=== PATIENT | male | born 1950 | race Caucasian/White ===

== ENCOUNTER 2017-02-22 16:57 | Inpatient (IN) | payer MEDICARE ==
[~2017-02-22] VITALS: Ht 180.3 cm; Wt 124.8 kg
[~2017-02-22 16:57] MED LIST: HYDR12.56 PO; LASI20TA PO; TRAM50 PO
[2017-02-27] MEDS ORDERED: HYDR12.57 PO (06:25)
[2017-02-27] MEDS ORDERED: ceFAZolin 2 GM PREMIX 50 ML ONE (06:30)
[2017-02-27 06:40] VITALS: BP 166/83; PULSE 53; RESP 20; TEMP 97.8; O2SAT 98
[2017-02-27] MEDS ORDERED: TRAM50TA PO (06:47)
[2017-02-27] MEDS ORDERED: GENTAMICIN SULFATE 80 MG/2 ML VIAL ONE (06:57)
[2017-02-27] MEDS ORDERED: FAMOTIDINE 20 MG/2 ML VIAL ONE (07:43)
[2017-02-27] MEDS ORDERED: MIDAZOLAM HCL 2 MG/2 ML VIAL ONE (07:44)
[2017-02-27] MEDS ORDERED: DEXAMETHASONE SOD PHOS 4 MG/ML VIAL ONE (07:44)
[2017-02-27] MEDS ORDERED: POVIDONE IODINE 7.5% SCRUB 118 ML BOTTLE TOPICAL SCH (07:45)
[2017-02-27] MEDS ORDERED: ceFAZolin 2 GM PREMIX 50 ML IV SCH (07:45)
[2017-02-27] MEDS ORDERED: LACTATED RINGER'S 1000 ML INJ 3,000 ML IV ONE (10:01)
[2017-02-27] MEDS ORDERED: ePHEDrine/NS 25 MG/5 ML SYR IV ONE (10:01)
[2017-02-27] MEDS ORDERED: PROPOFOL 200 MG/20 ML AMP IV ONE (10:01)
[2017-02-27] MEDS ORDERED: PHENYLEPH/NS 1000 MCG/10 ML SYR IV ONE (10:01)
[2017-02-27] MEDS ORDERED: ONDANSETRON HCL 4 MG/2 ML VIAL IV PUSH ONE (10:01)
[2017-02-27] MEDS ORDERED: SODIUM CHLOR 0.9% 250 ML INJ 250 ML IV ONE (10:02)
[2017-02-27 10:10] LABS: HEMATOCRIT 33.8 % (39.0-51.0); REVIEW FLAG FINAL
[2017-02-27] MEDS ORDERED: POVIDONE IODINE 10% SOLN 118 ML BOTTLE TOPICAL PRN (11:15)
[2017-02-27] MEDS ORDERED: ONDANSETRON HCL 4 MG/2 ML VIAL IVP PRN (11:15)
[2017-02-27] MEDS ORDERED: SODIUM CHLORIDE 0.9% FLUSH 10 ML FLUSH IV FLUSH PRN (11:15)
[2017-02-27] MEDS ORDERED: NALOXONE HCL 0.4 MG/ML AMP IV PRN (11:15)
[2017-02-27] MEDS ORDERED: MORPHINE SULFATE 8 MG/ML INJ IM PRN (11:15)
[2017-02-27] MEDS ORDERED: Post-op Orders (for Pharmacy) MISC XX ONE (11:15)
[2017-02-27] MEDS ORDERED: ACETAMINOPHEN 325 MG TAB PO PRN (11:15)
[2017-02-27] MEDS ORDERED: ACETAMINOPHEN/HYDROcodone 325 MG/7.5 MG TAB PO PRN (11:15)
[2017-02-27] MEDS ORDERED: fentaNYL CITRATE 250 MCG/5 ML AMP ONE (11:17)
[2017-02-27] MEDS ORDERED: MORPHINE SULFATE 4 MG/ML INJ ONE (11:17)
[2017-02-27] MEDS ORDERED: *morphine SULFATE 8 MG/ML PERIprocedure ONLY ONE (11:46)
[2017-02-27] MEDS: MORPHINE SULFATE 30 MG/30 ML PCA IV SCH (11:51)
[2017-02-27 11:59] LABS: HEMATOCRIT 35.2 % (39.0-51.0); REVIEW FLAG FINAL
--- NOTE | 2017-02-27 12:07 | RADRPT ---
EXAM DATE/TIME: 02/27/2017 11:30 [place] COMPARISON: No previous studies available for comparison. INDICATIONS : Postoperative right hip. MEDICAL HISTORY : None. SURGICAL HISTORY : None. ENCOUNTER: Initial ACUITY: 1 day PAIN SCORE: 10/10 LOCATION: Right hip FINDINGS: AP and crosstable lateral views of the right hip were obtained and demonstrate the patient status pos t arthroplasty. The femoral and acetabular components are intact and in normal alignment. There is la teral soft tissue swelling with overlying surgical skin taylor. CONCLUSION: Expected postoperative changes status post right hip arthroplasty. iMnh Mccarty MD on February 27, 2017 at 12:04 Board Certified Radiologist. This report was verified electronically.
[2017-02-27] MEDS ORDERED: LACTATED RINGER'S 1000 ML INJ 1,000 ML IV SCH (12:45)
[2017-02-27] MEDS: ceFAZolin 2 GM PREMIX 50 ML IV SCH ×2 (13:00→18:11)
[2017-02-27] MEDS: PCA - TOTAL MG MORPHINE DELIVERED PER SHIFT SCH ×2 (13:56→21:56)
[2017-02-27 18:25] VITALS: BP 146/77; PULSE 64; RESP 20; TEMP 98.1; O2SAT 96
[2017-02-27 19:30] VITALS: BP 124/75; PULSE 66; RESP 18; TEMP 98.1; O2SAT 96
[2017-02-27] MEDS: SODIUM CHLORIDE 0.9% FLUSH 10 ML FLUSH IV FLUSH SCH (21:00)
[2017-02-27] MEDS: ENOXAPARIN SODIUM 40 MG/0.4 ML SYRINGE SQ SCH (23:21)
[2017-02-28 00:30] VITALS: BP 136/67; PULSE 68; RESP 16; TEMP 96.6; O2SAT 95
[2017-02-28] MEDS: ceFAZolin 2 GM PREMIX 50 ML IV SCH (02:36)
[2017-02-28 04:40] VITALS: BP 158/79; PULSE 74; RESP 16; TEMP 97.8; O2SAT 16
[2017-02-28] MEDS: PCA - TOTAL MG MORPHINE DELIVERED PER SHIFT SCH ×3 (06:00→22:00)
[2017-02-28 06:51] LABS: HEMATOCRIT 30.3 % (39.0-51.0); MEAN CORPUSCULAR HEMOGLOBIN 30.4 PG (27.0-34.0); MEAN CORPUSCULAR HGB CONC 34.9 % (32.0-36.0); PLATELET COUNT 171 TH/MM3 (150-450); RED BLOOD COUNT 3.48 MIL/MM3 (4.50-5.90); RED CELL DISTRIBUTION WIDTH 13.6 % (11.6-17.2); REVIEW FLAG FINAL
[2017-02-28 07:18] LABS: BICARBONATE 33.4 MEQ/L (21.0-32.0); POTASSIUM 3.4 MEQ/L (3.5-5.1)
[2017-02-28 08:00] VITALS: BP 149/78; PULSE 79; RESP 16; TEMP 98.6; O2SAT 92
[2017-02-28] MEDS: HYDROCHLOROTHIAZIDE 12.5 MG CAP PO SCH (08:41)
[2017-02-28] MEDS: SODIUM CHLORIDE 0.9% FLUSH 10 ML FLUSH IV FLUSH SCH ×2 (08:42→20:20)
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
[2017-02-28] MEDS: MORPHINE SULFATE 30 MG/30 ML PCA IV SCH (10:17)
--- NOTE | 2017-02-28 10:53 | MP ---
cc: MONICA RIVERA MD DATE OF SURGERY: 02/27/2017 ATTENDING PHYSICIAN/SURGEON Elizabeth PREOPERATIVE DIAGNOSIS Right hip osteoarthritis. POSTOPERATIVE DIAGNOSIS Right hip osteoarthritis. PROCEDURE Right total hip arthroplasty. PROCEDURE IN DETAIL Informed consent was obtained. The patient was taken to the operating room and placed in the supine position on the operating table. He was administered general anesthesia by the anesthesiologist. At that time the patient was rolled into a lateral decubitus position and fixed with the hip positioner table. A sterile U-drape was applied to the patient's groin. At that time the hip was prepped with Betadine soap followed by Betadine paint from the iliac crest to the tip of the toes. Once this was completed the draping commenced with sterile down sheet, sterile towels about the hip and split sheet. Stockinette was applied to the foot and calf and this was wrapped with Coban. A laparotomy sheet was applied. An [place] drape was applied. The patient had been given two grams of Ancef prior to initiation of the operative procedure. A timeout was held and confirmed. At that time the hip was flexed. A marking pen was utilized to map out the proposed skin incision. With the hip flexed an incision was made through skin and subcutaneous tissue down through subcutaneous fat to the fascia shan. The fascia shan was opened along with the skin incision. A [place] retractor was placed. The sciatic nerve was identified and protected throughout the remainder of the operative procedure. At that time the short external rotators were tagged and taken down from the greater trochanter. The hip was dislocated. A femoral neck osteotomy was performed utilizing the DePuy guide. The hip was measured at a size 48. The acetabulum was then reamed beginning at size 47 up to size 59. A 60 trial component was placed and found to be satisfactory. At that time the final component was impacted into the hip. A single screw was used for screw fixation. This was a 6.5 x 20 mm screw. This was a Sector shell. Next, the DePuy acetabular liner was placed. This was a 32 mm inner diameter and 60 mm outer diameter liner and was snapped into position. At that time attention was turned to the femoral side. A cookie-cutter was utilized to open up the posterior canal. A T-handle reamer was utilized to identify the canal and reaming commenced at 8 mm up to 13 mm. Several broaches were then utilized to get to a 13.5 standard broach. Next, the 13.5 large stature broach was impacted into position. A trial reduction was performed utilizing a +1 32 mm trial head and this was found to be satisfactory. The trial components were removed. The 13.5 AML stem from the allGreenup, porous coated, was then impacted into the femur. The 32 mm diameter +1 neck length femoral head was impacted onto the femur and final reduction was performed and found to be satisfactory. At that time the hip was thoroughly irrigated and suctioned. A Hemovac drain was placed although this was discontinued during the dressing phase. The wound was closed with #1 Vicryl, 2-0 Vicryl, 2-0 plain and skin taylor. Xeroform, 4x4s, ABD and tape were applied to the patient's hip. He was placed in an abduction pillow then turned on his side on the recovery room stretcher. He tolerated the procedure well and was then taken to the recovery room in stable condition. At the completion of the procedure the sponge counts, instrument counts and needle counts were correct. Estimated blood loss was 750 cc. MD SOFIYA Duffy/JOSE /11:17 AM /10:32 AM
[2017-02-28] MEDS ORDERED: POTASSIUM CHLORIDE 25 MEQ EFFERVESCENT TAB PO ONE (11:45)
--- NOTE | 2017-02-28 11:48 | HHI.PR ---
Subjective Remarks Up in chair alert oriented Pain management, effective, patient states increased soreness, more than he expected Bowel regimen Afebrile Activity per PT Objective Objective Results - Vital Signs Date Time Temp Pulse Resp B/P Pulse Ox O2 Delivery O2 Flow Rate FiO2 02/28/17 08:00 98.6 79 16 149/78 92 02/28/17 06:00 18 02/28/17 04:40 97.8 74 16 158/79 16 02/28/17 00:30 96.6 68 16 136/67 95 02/27/17 21:56 16 02/27/17 20:52 21 02/27/17 19:30 98.1 66 18 124/75 96 02/27/17 18:25 98.1 64 20 146/77 96 02/27/17 16:00 98.6 60 22 123/63 98 Nasal Cannula 2 02/27/17 14:00 97.0 64 22 128/60 99 Nasal Cannula 4 02/27/17 13:56 17 02/27/17 13:00 59 15 122/65 99 Nasal Cannula 4 02/27/17 12:30 61 15 145/69 97 Nasal Cannula 4 02/27/17 12:15 63 17 145/64 96 Nasal Cannula 4 02/27/17 12:00 57 17 133/63 99 Nasal Cannula 4 02/27/17 11:51 15 02/27/17 11:45 53 13 123/59 100 Nasal Cannula 4 I/O 02/27/17 02/27/17 02/27/17 02/28/17 02/28/17 02/28/17 07:00 15:00 23:00 07:00 15:00 23:00 Intake Total 3360 ml 980 ml 480 ml Output Total 1600 ml 1200 ml 450 ml Balance 1760 ml -220 ml 30 ml Intake Oral 980 ml 480 ml IV Total 110 ml Packed Cells 250 ml Other 3000 ml Output Urine Total 1200 ml 450 ml Estimated Blood Loss 1600 ml # Bowel Movements 0 0 Result Diagram: 02/28/1761802/28/17618 ROS General: Weakness (status post right hip repair today 1), Other (10 point ROS done positives noted otherwise systems negative or unremarkable) GI: BM (not yet) Skin: Other (right hip wound incision clean dry and intact, mild edema) Physical Exam Physical Exam PHYSICAL EXAMINATION GENERAL: This is a well-developed, well-nourished obese male who appears to be in no acute distress. He is alert and awake, HEAD: Normocephalic without any lesion or mass noted. Facial features appear symmetric. OROPHARYNGEAL: Oropharynx without erythema or edema. NECK: Supple. No nuchal rigidity or lymphadenopathy. Trachea midline without deviation. CARDIAC: Regular rhythm, regular rate, S1 and S2 are heard. LUNGS: Clear to auscultation bilaterally. No wheezes rales or rhonchi ABDOMEN: Round, Soft, nontender, no organomegaly or masses. Bowel sounds are heard in all four quadrants. No BM yet EXTREMITIES: 1+ edema. Special attention to right lower extremity, surgical hip pulses intact NEUROLOGICAL: Patient mood and affect appropriate. No focal deficit SKIN:Warm and moist Objective Remarks I'm glad to be sitting up today A/P Assessment and Plan 1. Right hip osteoarthritis status post right hip arthroplasty. Postop care and pain management per ortho. Currently patient is up in chair , mild edema noted to his lower right lower extremity States really sore this morning, using pain meds Bowel regimen, no BM yet, discussed not going more than 3 days. Medical management stool softeners and laxative Leukocytosis mild, probable secondary to right hip repair. Protocol with antibiotics in place. 2. Hypertension. Medical management stable on vital signs 3. Obesity. Educated and discussed weight loss and healthy lifestyles which will include ambulation. Discharge planning goals discussed 4. Disk disease / herniation. Sitting up in chair, no complaints of low back pain. Medical management 5. Anemia, mild. Labs reviewed this a.m. hemoglobin 10.6, monitor 6. Hypokalemia, mild Labs reviewed this morning potassium 3.4. One dose K 25 mEq given. Discharge planning patient is planning going to rehabilitation, he states possible today after 2. Supportive care Discussed With: Nurse, Family (patient), Other (Dr. Woodson, seen on his behalf) Kimberlee Stuart Feb 28, 2017 11:48
[2017-02-28 12:00] VITALS: BP 125/70; PULSE 81; RESP 20; TEMP 99.7; O2SAT 97
--- NOTE | 2017-02-28 14:21 | PD.ORT.PN ---
Subjective Post Op Day #: 1 Subjective Remarks More painful than he remembers with right hip. Currently in Joint Class. Objective Vitals Vital Signs Date Time Temp Pulse Resp B/P Pulse Ox O2 Delivery O2 Flow Rate FiO2 02/28/17 08:00 98.6 79 16 149/78 92 02/28/17 06:00 18 02/28/17 04:40 97.8 74 16 158/79 16 02/28/17 00:30 96.6 68 16 136/67 95 02/27/17 21:56 16 02/27/17 20:52 21 02/27/17 19:30 98.1 66 18 124/75 96 02/27/17 18:25 98.1 64 20 146/77 96 02/27/17 16:00 98.6 60 22 123/63 98 Nasal Cannula 2 I/O 02/27/17 02/27/17 02/27/17 02/28/17 02/28/17 02/28/17 07:00 15:00 23:00 07:00 15:00 23:00 Intake Total 3360 ml 980 ml 480 ml Output Total 1600 ml 1200 ml 450 ml Balance 1760 ml -220 ml 30 ml Intake Oral 980 ml 480 ml IV Total 110 ml Packed Cells 250 ml Other 3000 ml Output Urine Total 1200 ml 450 ml Estimated Blood Loss 1600 ml # Bowel Movements 0 0 Result Diagram: 02/28/17 0619 02/28/17 0619 Imaging Last Impressions Hip and Pelvis X-Ray 02/27/17 0000 Signed Impressions: Service Date/Time: Monday, February 27, 2017 11:30 - CONCLUSION: Expected postoperative changes status post right hip arthroplasty. Minh Mccarty MD Objective Remarks Dressing intact. Patient is wheel chair and reportedly transferred without difficulty. N-V distally is intact. Assessment & Plan Ortho Post Op Day #: 1 Problem List: (1) Osteoarthritis of right hip (2) Presence of artificial hip Assessment and Plan Patient stable POD #1. Going back to joint class. Dressing change tomorrow. Continue post op rehab. Wilber Johnson MD Feb 28, 2017 14:21
[2017-02-28 15:43] VITALS: BP 142/79; PULSE 78; RESP 18; TEMP 99.4; O2SAT 97
[2017-02-28 19:30] VITALS: BP 144/70; PULSE 86; RESP 17; TEMP 99.8; O2SAT 93
[2017-02-28] MEDS: MULTIVITAMINS/MINERALS THERAPEUTIC TAB PO SCH (20:20)
[2017-02-28] MEDS: ENOXAPARIN SODIUM 40 MG/0.4 ML SYRINGE SQ SCH (22:27)
[2017-03-01 00:45] VITALS: BP 151/69; PULSE 82; RESP 18; TEMP 99; O2SAT 92
[2017-03-01 04:40] VITALS: BP 146/77; PULSE 77; RESP 18; TEMP 99.6; O2SAT 97
[2017-03-01] MEDS: PCA - TOTAL MG MORPHINE DELIVERED PER SHIFT SCH ×2 (05:06→14:00)
[2017-03-01 05:57] LABS: HEMATOCRIT 26.7 % (39.0-51.0); REVIEW FLAG FINAL
[2017-03-01 08:00] VITALS: BP 136/69; PULSE 76; RESP 18; TEMP 99.2; O2SAT 94
[2017-03-01] MEDS ORDERED: BISACODYL 10 MG SUPP RECTAL PRN (09:00)
[2017-03-01] MEDS: SODIUM CHLORIDE 0.9% FLUSH 10 ML FLUSH IV FLUSH SCH ×2 (09:00→20:03)
[2017-03-01] MEDS: MULTIVITAMINS/MINERALS THERAPEUTIC TAB PO SCH ×2 (09:12→20:03)
[2017-03-01] MEDS: MAGNESIUM HYDROXIDE SUSP 30 ML CUP PO SCH ×2 (09:12→20:03)
[2017-03-01] MEDS: HYDROCHLOROTHIAZIDE 12.5 MG CAP PO SCH (09:12)
[2017-03-01] MEDS: SENNOSIDES 8.6 MG TAB PO SCH (09:12)
[2017-03-01 12:00] VITALS: BP 145/61; PULSE 70; RESP 19; TEMP 100.6; O2SAT 99
--- NOTE | 2017-03-01 15:14 | PD.ORT.PN ---
Subjective Post Op Day #: 2 Subjective Remarks Improved but still painful. He has had soem problems with [place]. Objective Vitals Vital Signs Date Time Temp Pulse Resp B/P Pulse Ox O2 Delivery O2 Flow Rate FiO2 03/01/17 08:00 99.2 76 18 136/69 94 03/01/17 05:06 20 03/01/17 04:40 99.6 77 18 146/77 97 03/01/17 00:45 99.0 82 18 151/69 92 02/28/17 22:00 18 02/28/17 19:30 99.8 86 17 144/70 93 02/28/17 15:43 99.4 78 18 142/79 97 I/O 02/28/17 02/28/17 02/28/17 03/01/17 03/01/17 03/01/17 07:00 15:00 23:00 07:00 15:00 23:00 Intake Total 480 ml 240 ml 1140 ml 720 ml Output Total 450 ml 350 ml 500 ml Balance 30 ml -110 ml 1140 ml 220 ml Intake Oral 480 ml 240 ml 1020 ml 480 ml IV Total 120 ml 240 ml Output Urine Total 450 ml 350 ml 500 ml # Voids 4 # Bowel Movements 0 0 0 0 Result Diagram: 03/01/17 0522 02/28/17 0619 Imaging Last Impressions Hip and Pelvis X-Ray 02/27/17 0000 Signed Impressions: Service Date/Time: Monday, February 27, 2017 11:30 - CONCLUSION: Expected postoperative changes status post right hip arthroplasty. Minh Mccarty MD Objective Remarks Dressing intact- to be changed today Patient is wheel chair and reportedly transferred without difficulty. N-V distally is intact. Assessment & Plan Ortho Post Op Day #: 2 Problem List: (1) Osteoarthritis of right hip (2) Presence of artificial hip Assessment and Plan Patient stable POD #2. Going back to joint class. Dressing change today. Will discontinue [place] and try Oxycodone. Anticipate transfer to Rehab Center possibly tomorrow if bed available and patient is Medically cleared. Continue post op rehab. Wilber Johnson MD Mar 01, 2017 15:14
[2017-03-01 16:00] VITALS: BP 127/77; PULSE 71; RESP 19; TEMP 100.1; O2SAT 98
[2017-03-01] MEDS: oxyCODONE/ACETAMINOPHEN 5 MG/325 MG TAB PO PRN ×2 (17:44→23:43)
--- NOTE | 2017-03-01 17:53 | HHI.PR ---
Subjective Subjective Remarks hip pain stable no cp no sob no fever no bm yet Review of Systems Constitutional Constitutional Remarks 12 point ROS completed, negative except as noted above Vitals/Results Intake & Output 02/28/17 02/28/17 03/01/17 15:00 23:00 07:00 Intake Total 240 ml 1140 ml 720 ml Output Total 350 ml 500 ml Balance -110 ml 1140 ml 220 ml Intake Oral 240 ml 1020 ml 480 ml IV Total 120 ml 240 ml Output Urine Total 350 ml 500 ml # Voids 4 # Bowel Movements 0 0 0 Vital Signs Vital Signs Date Time Temp Pulse Resp B/P Pulse Ox O2 Delivery O2 Flow Rate FiO2 03/01/17 08:00 99.2 76 18 136/69 94 03/01/17 05:06 20 03/01/17 04:40 99.6 77 18 146/77 97 03/01/17 00:45 99.0 82 18 151/69 92 02/28/17 22:00 18 02/28/17 19:30 99.8 86 17 144/70 93 CBC/BMP: 03/01/17 0522 02/28/17 0619 Lab Results Laboratory Tests Test 03/01/17 05:22 Hemoglobin 9.4 GM/DL Hematocrit 26.7 % Physical Exam General General Appearance: Well Developed, Well Nourished, No Acute Distress, Comfortable, Obese Eyes Eye Exam: Pupils Equal, Pupils Reactive Ears & Nose Ears & Nose Exam: Nasal Mucosa [place] Throat Throat Exam: Oral Mucosa [place] & Moist Neck Neck Exam: Neck Supple, Trachea Midline Pulmonary Resp Exam: Clear Bilaterally Cardiology CV Exam: Regular Gastrointestinal/Abdomen GI Exam: Soft, Non-Tender, Bowel Sounds Present, Non-Distended Musculoskeletal MS Exam: Joints Intact MS Remarks right hip dressing D/I Integumentary Skin Exam: Warm, Dry Extremeties Extremities Exam: Pedal Pulses Palpable, Trace Edema Neurologic Neuro Exam: Alert, Awake, Oriented, Speech Clear, Moving All Extremities, Sterilization Technician Equal VTE Prophylaxis VTE Prophylaxis Meds: Lovenox Assessment/Plan Assessment/Plan 1. Right hip osteoarthritis status post right hip arthroplasty. Postop care and pain management per ortho. Currently patient is up in chair , mild edema noted to his lower right lower extremity pain management Bowel regimen, no BM yet, continue with medical management stool softeners and laxative 2. Hypertension. Medical management stable on vital signs 3. Obesity. Educated and discussed weight loss and healthy lifestyles which will include ambulation. 4. Disk disease / herniation. Sitting up in chair, no complaints of low back pain. Medical management 5. Anemia, mild. Labs reviewed this a.m. HH stable 6. Hypokalemia, mild stable. poss. dc to rehab tomorrow needs to have BM D/W RN D/W pt and family D/W Dr. Woodson This pt. was seen by myself and Dr. Woodson, this note is written on his behalf. Arlet Guillen Mar 01, 2017 17:53
[2017-03-01] MEDS: ENOXAPARIN SODIUM 40 MG/0.4 ML SYRINGE SQ SCH (22:52)
[2017-03-02] VITALS: BP 140/53; PULSE 74; RESP 17; TEMP 98.8; O2SAT 96
[2017-03-02] MEDS: PCA - TOTAL MG MORPHINE DELIVERED PER SHIFT SCH ×2 (06:00→08:30)
[2017-03-02] MEDS: oxyCODONE/ACETAMINOPHEN 5 MG/325 MG TAB PO PRN ×4 (06:02→23:30)
[2017-03-02 07:34] VITALS: BP 133/62; PULSE 66; RESP 19; TEMP 96.6; O2SAT 98
[2017-03-02] MEDS: MULTIVITAMINS/MINERALS THERAPEUTIC TAB PO SCH ×2 (08:30→19:59)
[2017-03-02] MEDS: SENNOSIDES 8.6 MG TAB PO SCH (08:30)
[2017-03-02] MEDS: HYDROCHLOROTHIAZIDE 12.5 MG CAP PO SCH (08:30)
[2017-03-02] MEDS: MAGNESIUM HYDROXIDE SUSP 30 ML CUP PO SCH ×2 (08:30→20:00)
[2017-03-02] MEDS: SODIUM CHLORIDE 0.9% FLUSH 10 ML FLUSH IV FLUSH SCH ×2 (08:30→19:59)
[2017-03-02 11:23] VITALS: BP 119/59; PULSE 71; RESP 19; TEMP 98.5; O2SAT 99
--- NOTE | 2017-03-02 12:10 | HHI.PR ---
Subjective Subjective Remarks hip pain stable no cp no sob no fever eating okay fever overnight, max 100.6 no cough, no sputum going to rehab tomorrow or Sunday Review of Systems Constitutional Constitutional Remarks 12 point ROS completed, negative except as noted above Vitals/Results Intake & Output 03/01/17 03/01/17 03/02/17 15:00 23:00 07:00 Intake Total 600 ml 480 ml Output Total 600 ml Balance 0 ml 480 ml Intake Oral 600 ml 480 ml Output Urine Total 600 ml # Voids 2 # Bowel Movements 1 Vital Signs Vital Signs Date Time Temp Pulse Resp B/P Pulse Ox O2 Delivery O2 Flow Rate FiO2 03/02/17 11:23 98.5 71 19 119/59 99 03/02/17 07:34 96.6 66 19 133/62 98 03/02/17 00:00 98.8 74 17 140/53 96 03/01/17 16:00 100.1 71 19 127/77 98 CBC/BMP: 03/01/17 0522 02/28/17 0619 Physical Exam General General Appearance: Well Developed, Well Nourished, No Acute Distress, Comfortable, Obese Eyes Eye Exam: Pupils Equal, Pupils Reactive Ears & Nose Ears & Nose Exam: Nasal Mucosa [place] Throat Throat Exam: Oral Mucosa [place] & Moist Neck Neck Exam: Neck Supple, Trachea Midline Pulmonary Resp Exam: Clear Bilaterally Cardiology CV Exam: Regular Gastrointestinal/Abdomen GI Exam: Soft, Non-Tender, Bowel Sounds Present, Non-Distended Musculoskeletal MS Exam: Joints Intact MS Remarks right hip dressing D/I Integumentary Skin Exam: Warm, Dry Extremeties Extremities Exam: Pedal Pulses Palpable, Trace Edema Neurologic Neuro Exam: Alert, Awake, Oriented, Speech Clear, Moving All Extremities, Clamp Operator Equal Psychiatric Psych Exam: Appropriate Responses VTE Prophylaxis VTE Prophylaxis Meds: Lovenox Assessment/Plan Assessment/Plan 1. Right hip osteoarthritis status post right hip arthroplasty. Postop care and pain management per ortho. Lovenox for DVT prophylaxis pain management Bowel regimen, had BM yet, continue with stool softeners and laxative 2. Hypertension. Medical management 3. Obesity. Educated and discussed weight loss and healthy lifestyles which will include ambulation. Motivated to lose weight 4. Disk disease / herniation. Sitting up in chair, no complaints of low back pain. Medical management 5. Anemia, mild. Labs reviewed this a.m. HH stable 6. Hypokalemia, mild stable. poss. dc to rehab tomorrow-going to [facility] stable for discharge when bed ready. D/W RN D/W pt and family D/W Dr. Woodson This pt. was seen by myself and Dr. Woodson, this note is written on his behalf. Arlet Guillen Mar 02, 2017 12:10
[2017-03-02] MEDS ORDERED: OXYC1TAB63 PO (12:27)
[2017-03-02] MEDS ORDERED: ENOX40P SQ (12:27)
--- NOTE | 2017-03-02 12:41 | PD.ORT.PN ---
Subjective Post Op Day #: 3 Subjective Remarks Doing much better. Up in chair. Doing better with Oxycodone. Objective Vitals Vital Signs Date Time Temp Pulse Resp B/P Pulse Ox O2 Delivery O2 Flow Rate FiO2 03/02/17 11:23 98.5 71 19 119/59 99 03/02/17 07:34 96.6 66 19 133/62 98 03/02/17 00:00 98.8 74 17 140/53 96 03/01/17 16:00 100.1 71 19 127/77 98 I/O 03/01/17 03/01/17 03/01/17 03/02/17 03/02/17 03/02/17 07:00 15:00 23:00 07:00 15:00 23:00 Intake Total 720 ml 600 ml 480 ml Output Total 500 ml 600 ml Balance 220 ml 0 ml 480 ml Intake Oral 480 ml 600 ml 480 ml IV Total 240 ml Output Urine Total 500 ml 600 ml # Voids 2 # Bowel Movements 0 1 Result Diagram: 03/01/17 0522 02/28/17 0619 Imaging Last Impressions Hip and Pelvis X-Ray 02/27/17 0000 Signed Impressions: Service Date/Time: Monday, February 27, 2017 11:30 - CONCLUSION: Expected postoperative changes status post right hip arthroplasty. Minh Mccarty MD Objective Remarks Dressing intact. Reportedly looks good. N-V distally is intact. Assessment & Plan Ortho Post Op Day #: 3 Problem List: (1) Osteoarthritis of right hip (2) Presence of artificial hip Assessment and Plan Patient stable POD #3. Arrangements are made for transfer to [facility] tomorrow. Will see in follow up in 2 weeks. Wilber Johnson MD Mar 02, 2017 12:41
--- NOTE | 2017-03-02 12:45 | HHI.DS ---
Discharge Summary Admission Date Feb 27, 2017 at 05:48 Discharge Date: Mar 03, 2017 Admitting Diagnosis Osteoarthritis Right Hip Diagnosis: (1) Osteoarthritis of right hip Diagnosis: Principal (2) Presence of artificial hip Diagnosis: Principal Procedures Right Total Hip Arthroplasty Brief History This is a 67 year old male patient with long history of progressive osteoarthritis of the right hip. Prior Left total hip in 2009 and has done well. CBC/BMP: 03/01/17 0522 02/28/17 0619 Significant Findings Laboratory Tests Test 02/28/17 03/01/17 06:19 05:22 White Blood Count 12.0 TH/MM3 (4.0-11.0) Red Blood Count 3.48 MIL/MM3 (4.50-5.90) Hemoglobin 10.6 GM/DL 9.4 GM/DL (13.0-17.0) (13.0-17.0) Hematocrit 30.3 % 26.7 % (39.0-51.0) (39.0-51.0) Potassium Level 3.4 MEQ/L (3.5-5.1) Chloride Level 97 MEQ/L (98-107) Carbon Dioxide Level 33.4 MEQ/L (21.0-32.0) Estimat Glomerular Filtration 75 ML/MIN (>89) Rate Random Glucose 133 MG/DL (74-106) Calcium Level 8.1 MG/DL (8.5-10.1) Imaging Last Impressions Hip and Pelvis X-Ray 02/27/17 0000 Signed Impressions: Service Date/Time: Monday, February 27, 2017 11:30 - CONCLUSION: Expected postoperative changes status post right hip arthroplasty. Minh Mccarty MD PE at Discharge Dressing intact. Wound reportedly looks good. N-V distally is intact. Transfer Summary Transfer to [facility] tomorrow. Hospital Course Patient did well following surgery. He has been up with walker with therapy. He received 24 hours of antibiotic following surgery and he has been afebrile. Pt Condition on Discharge: Good Discharge Disposition: Discharge to SNF Discharge Instructions Diet Instructions: As Tolerated, No Restrictions Activities You Can Perform: Toe Touch Weight Bearing Wilber Johnson MD Mar 02, 2017 12:45
[2017-03-02 15:53] VITALS: BP 144/67; PULSE 68; RESP 19; TEMP 98.6; O2SAT 94
[2017-03-02] MEDS: CYCLOBENZAPRINE HCL 10 MG TAB PO PRN ×2 (19:59→23:30)
[2017-03-02 20:40] VITALS: BP 143/62; PULSE 69; RESP 20; TEMP 99.8; O2SAT 93
[2017-03-02] MEDS: ENOXAPARIN SODIUM 40 MG/0.4 ML SYRINGE SQ SCH (23:30)
[2017-03-03] MEDS: oxyCODONE/ACETAMINOPHEN 5 MG/325 MG TAB PO PRN ×3 (05:50→18:18)
[2017-03-03] MEDS: CYCLOBENZAPRINE HCL 10 MG TAB PO PRN ×3 (05:50→23:23)
[2017-03-03] MEDS: MAGNESIUM HYDROXIDE SUSP 30 ML CUP PO SCH ×2 (07:06→20:36)
[2017-03-03] MEDS: SENNOSIDES 8.6 MG TAB PO SCH (07:07)
[2017-03-03 07:23] VITALS: BP 150/63; PULSE 60; RESP 19; TEMP 97.1; O2SAT 94
[2017-03-03] MEDS: SODIUM CHLORIDE 0.9% FLUSH 10 ML FLUSH IV FLUSH SCH ×2 (09:00→20:35)
[2017-03-03] MEDS: HYDROCHLOROTHIAZIDE 12.5 MG CAP PO SCH (10:11)
[2017-03-03] MEDS: MULTIVITAMINS/MINERALS THERAPEUTIC TAB PO SCH ×2 (10:12→20:35)
[2017-03-03 11:52] VITALS: BP 126/68; PULSE 71; RESP 19; TEMP 96.1; O2SAT 99
[2017-03-03 16:02] VITALS: BP 134/63; PULSE 68; RESP 19; TEMP 98.1; O2SAT 95
[2017-03-03 19:25] VITALS: BP 153/67; PULSE 71; RESP 20; TEMP 98; O2SAT 100
[2017-03-03] MEDS: PCA - TOTAL MG MORPHINE DELIVERED PER SHIFT SCH (22:00)
[2017-03-03] MEDS: ENOXAPARIN SODIUM 40 MG/0.4 ML SYRINGE SQ SCH (23:22)
[2017-03-04] MEDS: oxyCODONE/ACETAMINOPHEN 5 MG/325 MG TAB PO PRN ×4 (00:23→21:10)
[2017-03-04 00:26] VITALS: BP 142/71; PULSE 67; RESP 19; TEMP 97.8; O2SAT 98
[2017-03-04] MEDS: PCA - TOTAL MG MORPHINE DELIVERED PER SHIFT SCH ×2 (06:00→22:00)
[2017-03-04] MEDS: CYCLOBENZAPRINE HCL 10 MG TAB PO PRN ×2 (06:12→19:18)
[2017-03-04 08:00] VITALS: BP 118/81; PULSE 62; RESP 16; TEMP 97.4; O2SAT 97
[2017-03-04] MEDS: SENNOSIDES 8.6 MG TAB PO SCH (09:00)
[2017-03-04] MEDS: MAGNESIUM HYDROXIDE SUSP 30 ML CUP PO SCH ×2 (09:00→21:09)
[2017-03-04] MEDS: HYDROCHLOROTHIAZIDE 12.5 MG CAP PO SCH (09:03)
[2017-03-04] MEDS: MULTIVITAMINS/MINERALS THERAPEUTIC TAB PO SCH ×2 (09:04→21:09)
[2017-03-04] MEDS: SODIUM CHLORIDE 0.9% FLUSH 10 ML FLUSH IV FLUSH SCH ×2 (09:06→21:12)
[2017-03-04 12:00] VITALS: BP 137/67; PULSE 73; RESP 16; TEMP 99.5; O2SAT 95
[2017-03-04 16:00] VITALS: BP 146/65; PULSE 69; RESP 16; TEMP 99.2; O2SAT 96
[2017-03-04 20:00] VITALS: BP 146/63; PULSE 70; RESP 18; TEMP 100; O2SAT 93
[2017-03-04] MEDS: ENOXAPARIN SODIUM 40 MG/0.4 ML SYRINGE SQ SCH (23:09)
[2017-03-05] VITALS: BP 103/61; PULSE 75; RESP 17; TEMP 99.8; O2SAT 95
[2017-03-05] MEDS: oxyCODONE/ACETAMINOPHEN 5 MG/325 MG TAB PO PRN ×2 (04:42→13:26)
[2017-03-05] MEDS: PCA - TOTAL MG MORPHINE DELIVERED PER SHIFT SCH ×4 (06:00→22:55)
[2017-03-05 08:00] VITALS: BP 131/61; PULSE 55; RESP 18; TEMP 98.1; O2SAT 95
[2017-03-05] MEDS: MULTIVITAMINS/MINERALS THERAPEUTIC TAB PO SCH ×2 (08:52→19:54)
[2017-03-05] MEDS: SODIUM CHLORIDE 0.9% FLUSH 10 ML FLUSH IV FLUSH SCH ×2 (08:52→19:55)
[2017-03-05] MEDS: MAGNESIUM HYDROXIDE SUSP 30 ML CUP PO SCH ×2 (08:52→19:55)
[2017-03-05] MEDS: HYDROCHLOROTHIAZIDE 12.5 MG CAP PO SCH (08:52)
[2017-03-05] MEDS: CYCLOBENZAPRINE HCL 10 MG TAB PO PRN ×2 (08:52→19:55)
[2017-03-05] MEDS: SENNOSIDES 8.6 MG TAB PO SCH (08:53)
--- NOTE | 2017-03-05 10:42 | HHI.PR ---
Subjective Remarks Up in chair alert oriented Pain management, Bowel regimen Activity per PT Objective Objective Results - Vital Signs Date Time Temp Pulse Resp B/P Pulse Ox O2 Delivery O2 Flow Rate FiO2 03/05/17 08:00 98.1 55 18 131/61 95 03/05/17 00:00 99.8 75 17 103/61 95 03/04/17 20:00 100.0 70 18 146/63 93 03/04/17 16:00 99.2 69 16 146/65 96 03/04/17 12:00 99.5 73 16 137/67 95 I/O 03/04/17 03/04/17 03/04/17 03/05/17 03/05/17 03/05/17 07:00 15:00 23:00 07:00 15:00 23:00 Intake Total 240 ml 600 ml 240 ml 240 ml Output Total 825 ml 1450 ml 300 ml 500 ml Balance -585 ml -850 ml -60 ml -260 ml Intake Oral 240 ml 600 ml 240 ml 240 ml Output Urine Total 825 ml 1450 ml 300 ml 500 ml # Bowel Movements 0 0 1 0 Result Diagram: 03/01/17521 Medications and IVs Administered Medications Medications (Trade) Dose Ordered Sig/Moira Route PRN Reason Start Time Stop Time Status Last Admin Dose Admin Sodium Chloride (NS Flush) 2 ml BID IV FLUSH 02/27/17 21:00 03/05/17 08:52 Enoxaparin Sodium (Lovenox Inj) 40 mg Q24H SQ 02/27/17 23:00 03/04/17 23:09 Multivitamins/ Minerals Therapeutic (Theragran M Tab) 1 tab BID PO 02/28/17 21:00 04/29/17 20:59 03/05/17 08:52 Morphine Sulfate (Morphine 1 Mg/ ml [employer]ER) 30 mg UNSCH IV 02/27/17 11:15 02/28/17 10:17 [employer]ER Dosage Infused (Pha) 1 Q8HR .XX 02/27/17 14:00 03/01/17 05:06 Hydrochlorothiazide (Microzide) 12.5 mg DAILY PO 02/28/17 09:00 03/05/17 08:52 Magnesium Hydroxide (Milk Of Magnesia Liq) 30 ml BID PO 03/01/17 09:00 03/04/17 21:09 Sennosides (Senokot) 17.2 mg DAILY PO 03/01/17 09:00 03/01/17 09:12 Oxycodone/ Acetaminophen (Percocet 5-325 Mg) 1 tab Q6H PRN PO PAIN SCALE 1 TO 5 03/01/17 15:00 03/05/17 04:42 Cyclobenzaprine HCl (Flexeril) 10 mg TID PRN PO MUSCLE SPASMS 03/02/17 19:30 03/05/17 08:52 ROS General: Weakness (improving), Other (10 point ROS done, systems negative except for postop debility and pain, systems unremarkable) Physical Exam Physical Exam PHYSICAL EXAMINATION GENERAL: This is a well-developed, well-nourished male who appears to be in no acute distress. He is alert and awake, HEAD: Normocephalic without any lesion or mass noted. Facial features appear symmetric. OROPHARYNGEAL: Oropharynx without erythema or edema. NECK: Supple. No nuchal rigidity or lymphadenopathy. Trachea midline without deviation. CARDIAC: Regular rhythm, regular rate, S1 and S2 are heard. LUNGS: Clear to auscultation bilaterally. ABDOMEN: Soft, nontender, no organomegaly or masses. Bowel sounds are heard in all four quadrants. No rebound. No guarding. EXTREMITIES: Lower extremity edema mild. Status post right total hip replacement NEUROLOGICAL: Patient mood and affect appropriate. No focal deficit SKIN:Warm and moist Objective Remarks I'm doing okay waiting to go to rehabilitation A/P Assessment and Plan 1. Right hip osteoarthritis status post right hip arthroplasty. Postop care and pain management per ortho. Currently patient is up in chair , mild edema noted to his lower right lower extremity Plan is to go to rehabilitation today pending insurance approval Bowel regimen, stable 2. Hypertension. Medical management stable on vital signs 3. Obesity. Educated and discussed weight loss and healthy lifestyles which will include ambulation. Discharge planning goals discussed 4. Disk disease / herniation. Medical management 5. Anemia, mild. Stable 6. Hypokalemia, mild Potassium replaced stable. Discharge planning patient is planning going to rehabilitation, plan is for today, medically stable Supportive care Discharge Planning Rehabilitation Discussed With: Nurse, Family (patient), Other (Dr. Woodson, seen on his behalf) Kimberlee Stuart March 05, 2017 10:42
[2017-03-05 11:58] VITALS: BP 125/79; PULSE 94; RESP 18; TEMP 99; O2SAT 97
--- NOTE | 2017-03-05 14:43 | PD.ORT.PN ---
Subjective Post Op Day #: 6 Subjective Remarks Doing better. Patient was discharged on 03/02/17 but still here because insurance company has not approved disposition. No new complaints. Objective Vitals Vital Signs Date Time Temp Pulse Resp B/P Pulse Ox O2 Delivery O2 Flow Rate FiO2 03/05/17 11:58 99.0 94 18 125/79 97 03/05/17 08:00 98.1 55 18 131/61 95 03/05/17 00:00 99.8 75 17 103/61 95 03/04/17 20:00 100.0 70 18 146/63 93 03/04/17 16:00 99.2 69 16 146/65 96 I/O 03/04/17 03/04/17 03/04/17 03/05/17 03/05/17 03/05/17 07:00 15:00 23:00 07:00 15:00 23:00 Intake Total 240 ml 600 ml 240 ml 240 ml Output Total 825 ml 1450 ml 300 ml 500 ml Balance -585 ml -850 ml -60 ml -260 ml Intake Oral 240 ml 600 ml 240 ml 240 ml Output Urine Total 825 ml 1450 ml 300 ml 500 ml # Bowel Movements 0 0 1 0 Result Diagram: 03/01/17 0522 Imaging Last Impressions Hip and Pelvis X-Ray 02/27/17 0000 Signed Impressions: Service Date/Time: Monday, February 27, 2017 11:30 - CONCLUSION: Expected postoperative changes status post right hip arthroplasty. Minh Mccarty MD Procedures Right Total Hip Arthroplasty Objective Remarks Dressing intact. Wound reportedly looks good. N-V distally is intact. Assessment & Plan Ortho Post Op Day #: 6 Problem List: (1) Osteoarthritis of right hip (2) Presence of artificial hip Assessment and Plan Patient stable POD #6. Arrangements are incomplete regarding discharge to rehab - insurance company approval pending. Will see in follow up in 2 weeks. Wilber Johnson MD March 05, 2017 14:43
[2017-03-05 16:00] VITALS: BP 117/71; PULSE 82; RESP 18; TEMP 99; O2SAT 97
[2017-03-05 19:00] VITALS: BP 121/61; PULSE 66; RESP 15; TEMP 99.2; O2SAT 96
[2017-03-05] MEDS: ENOXAPARIN SODIUM 40 MG/0.4 ML SYRINGE SQ SCH (23:32)
[2017-03-06] VITALS: BP 135/67; PULSE 61; RESP 17; TEMP 97.9; O2SAT 96
[2017-03-06] MEDS: oxyCODONE/ACETAMINOPHEN 5 MG/325 MG TAB PO PRN ×2 (01:17→15:49)
[2017-03-06 07:44] VITALS: BP 131/61; PULSE 71; RESP 18; TEMP 96.7; O2SAT 94
[2017-03-06] MEDS: MAGNESIUM HYDROXIDE SUSP 30 ML CUP PO SCH (09:00)
[2017-03-06] MEDS: SENNOSIDES 8.6 MG TAB PO SCH (09:00)
[2017-03-06] MEDS: SODIUM CHLORIDE 0.9% FLUSH 10 ML FLUSH IV FLUSH SCH (09:00)
[2017-03-06] MEDS: HYDROCHLOROTHIAZIDE 12.5 MG CAP PO SCH (09:36)
[2017-03-06] MEDS: MULTIVITAMINS/MINERALS THERAPEUTIC TAB PO SCH (09:36)
--- NOTE | 2017-03-06 09:55 | HHI.PR ---
Subjective Remarks Up in chair alert oriented Working with physical therapy and doing activities in his room Discharge planning with insurance still pending Objective Objective Results - Vital Signs Date Time Temp Pulse Resp B/P Pulse Ox O2 Delivery O2 Flow Rate FiO2 03/06/17 07:44 96.7 71 18 131/61 94 03/06/17 00:00 97.9 61 17 135/67 96 03/05/17 19:00 99.2 66 15 121/61 96 03/05/17 16:00 99.0 82 18 117/71 97 03/05/17 11:58 99.0 94 18 125/79 97 I/O 03/05/17 03/05/17 03/05/17 03/06/17 03/06/17 03/06/17 07:00 15:00 23:00 07:00 15:00 23:00 Intake Total 240 ml 960 ml 480 ml 480 ml Output Total 500 ml 1250 ml 400 ml 600 ml Balance -260 ml -290 ml 80 ml -120 ml Intake Oral 240 ml 960 ml 480 ml 480 ml Output Urine Total 500 ml 1250 ml 400 ml 600 ml # Bowel Movements 0 0 0 0 ROS General: Weakness (generalized status post right hip surgery), Other (10 point ROS done positives noted with Y systems unremarkable) GI: BM (BM yesterday) Physical Exam Physical Exam PHYSICAL EXAMINATION GENERAL: This is a well-developed, well-nourished male who appears to be in no acute distress. He is alert HEAD: Normocephalic without any lesion or mass noted. Facial features appear symmetric. OROPHARYNGEAL: Oropharynx without erythema or edema. NECK: Supple. No nuchal rigidity or lymphadenopathy. Trachea midline without deviation. CARDIAC: Regular rhythm, regular rate, S1 and S2 are heard., Trace of edema especially in right lower leg. LUNGS: Clear to auscultation bilaterally. ABDOMEN: Soft, nontender, no organomegaly or masses. Bowel sounds are heard in all four quadrants. No rebound. No guarding. EXTREMITIES: Trace right lower leg edema. Pulses equal bilateral. NEUROLOGICAL: Patient mood and affect appropriate. No focal deficit SKIN:Warm and moist Objective Remarks Hoping to go to rehabilitation today A/P Assessment and Plan 1. Right hip osteoarthritis status post right hip arthroplasty. Postop care and pain management per ortho. Currently patient is up in chair , mild edema noted to his lower right lower extremity, elevate as needed Plan is to go to rehabilitation today pending insurance approval Bowel regimen, stable 2. Hypertension. Medical management stable on vital signs 3. Obesity. Educated and discussed weight loss and the plan of care 4. Disk disease / herniation. Medical management 5. Anemia, mild. Stable Discharge planning patient is planning going to rehabilitation, case management working with patient's insurance for approval, medically stable Excepted to rehabilitation pending insurance Discharge Planning Rehabilitation Discussed With: Nurse, Family (patient), Other (Dr. Woodson, seen on his behalf) Kimberlee Stuart March 06, 2017 09:55
[2017-03-06 12:00] VITALS: BP 125/74; PULSE 71; RESP 18; TEMP 98.2; O2SAT 96
[2017-03-06] MEDS: PCA - TOTAL MG MORPHINE DELIVERED PER SHIFT SCH (13:03)
== END 2017-03-06 16:24 | DRG 470 ==
LOC: HSDI 02-27 05:48 → N06B 02-27 18:33
PROVIDERS: ADMIT Orthopaedic Surgery; ATTEND Orthopaedic Surgery
PROC: 0SR902A Replacement of Right Hip Joint with Metal on Polyethylene Synthetic Substitute, Uncemented, Open Approach (ICD-10-PCS; principal; 2017-02-27 08:08)
DX: M16.11 Unilateral primary osteoarthritis, right hip (principal); E66.9 Obesity, unspecified; I10 Essential (primary) hypertension; K21.9 Gastro-esophageal reflux disease without esophagitis; F10.10 Alcohol abuse, uncomplicated; Z68.38 Body mass index [BMI] 38.0-38.9, adult; D64.9 Anemia, unspecified; K59.00 Constipation, unspecified; E87.6 Hypokalemia; Z96.642 Presence of left artificial hip joint; R51 Headache; Z87.891 Personal history of nicotine dependence
CPT/HCPCS: 36430; 73501; 80048; 85014; 85018; 85027; 86850; 86890; 86900; 86901; 86920; 88304; 88305; 88311; 94150; C1776; J0690; J1100; J1580; J1650; J2250; J2270; J2370; J2405; J3010; J7050; J7120; P9016